=== PATIENT | female | born 1965 | race Two or more races ===

== ENCOUNTER → 2017-03-08 | Emergency (ER) | payer MEDICAID ==
[~2017-03-08] VITALS: Ht 157.5 cm; Wt 88.0 kg
[~2017-03-08] MED LIST: ADVIL200 MG PO; AFRIN NASAL SPR30 ML NASAL; GUAIFENESIN-CO118 M1 ORAL; IBUPROFEN600 MG ORAL; IBUPROFEN600 MG PO; NKM; OCUFLOX5 ML OP; SALINE NASAL SP45 ML NASAL; TYLENOL EXTRA500 MG ORAL; VICODIN 5-5001 EACH PO; ZITHROMAX250 MG ORAL
--- NOTE | 2017-03-08 17:26 | Emergency Room Report ---
History of Present Illness General Chief Complaint: Pain Source: Patient Present Illness HPI 51 YO Female presents to the ED C/O sticky discharge in the left eye since yesterday. pt. reports progressive GARCIA on the left side of the head that radiates down the left side of her neck. pt. denies N/V/F/C. Pt. has left sided facial paralysis since 1993, and pt. states when she sleeps her eye does not close all the way. pt. denies worsening of her symptoms, weakness, or numbness/ tingling. Pt. reports left ear pain as well. denies recent illness, trauma to the eye, or contact lens use .pt. states difficulty opening her eye in the am due to excessive mucus in the left eye. denies painful eye movements, denies eye pain, or loss of vision. Denies: Pain, Discharge, Redness, Loss of vision, Floaters, Flashing lights, Diplopia/blurry vision, Increased tearing. Denies imbalance, head trauma, CP, Palpitations, LOC, AMS, dizziness, Changes in Vision , Sensation, paresthesias, or a sudden severe headache. Allergies: Coded Allergies: No Known Allergies (Unverified , 09/17/13) Patient History Past Medical History: see triage record Past Surgical History: none Reviewed Nursing Documentation: PMH: Agreed, PSxH: Agreed Review of Systems All Other Systems: negative except mentioned in HPI Physical Exam Vital Signs Date Time Temp Pulse Resp B/P Pulse Ox O2 Delivery O2 Flow Rate FiO2 03/08/17 17:07 98.1 66 16 141/85 95 Room Air Sp02 EP Interpretation: reviewed, normal General Appearance: no apparent distress, alert, GCS 15, non-toxic Head: normocephalic, atraumatic Eyes: left eye other - yellow discharge noted in the left eye, no lid swelling , lid droop, no evidence of infestation. , bilateral eye EOMI, bilateral eye PERRL, bilateral eye normal inspection ENT: hearing grossly normal, normal pharynx, no angioedema, normal voice Neck: full range of motion, supple/symm/no masses Respiratory: lungs clear, normal breath sounds, speaking full sentences Cardiovascular #1: regular rate, rhythm, no edema Gastrointestinal: normal bowel sounds, non tender, soft, no guarding, no rebound Rectal: deferred Genitourinary: normal inspection, no CVA tenderness Musculoskeletal: back normal, gait/station normal, normal range of motion, non- tender, no calf tenderness Neurologic: alert, oriented x3, responsive, motor strength/tone normal, sensory intact, cerebellar normal, normal gait, speech normal, no pronator, other - 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 cheatham is my supervising Physician whom patient management has been discussed with. Diagnostic Impression: Primary Impression: Conjunctivitis Qualified Codes: H10.32 - Unspecified acute conjunctivitis, left eye ER Course 51 YO Female presents to the ED C/O sticky discharge in the left eye since yesterday. pt. reports progressive GARCIA on the left side of the head that radiates down the left side of her neck. pt. denies N/V/F/C. Pt. has left sided facial paralysis since 1993, and pt. states when she sleeps her eye does not close all the way. pt. denies worsening of her symptoms, weakness, or numbness/ tingling. Pt. reports left ear pain as well. denies recent illness, trauma to the eye, or contact lens use .pt. states difficulty opening her eye in the am due to excessive mucus in the left eye. denies painful eye movements, denies eye pain, or loss of vision. Denies: Pain, Discharge, Redness, Loss of vision, Floaters, Flashing lights, Diplopia/blurry vision, Increased tearing. Denies imbalance, head trauma, CP, Palpitations, LOC, AMS, dizziness, Changes in Vision , Sensation, paresthesias, or a sudden severe headache.e. Ddx considered but are not limited to: corneal abrasion, acute glaucoma, globe rupture, FB, Corneal Ulcer, conjunctivitis. Iridis, orbital cellulitis,keratitis , sinusitis Vital signs: are WNL, pt. is afebrile H&PE are most consistent with: bacterial conjunctivitis. ORDERS: none at this time. ED INTERVENTIONS: -Tylenol PO -d/w pt. to follow up with here PCP and also neurologist if she continues to have GARCIA's and as she states she was never told what caused her paralysis. DISCHARGE: At this time pt. is stable for d/c to home. Will provide printed patient care instructions, and any necessary prescriptions. Care plan and follow up instructions have been discussed with the patient prior to discharge. Last Vital Signs Date Time Temp Pulse Resp B/P Pulse Ox O2 Delivery O2 Flow Rate FiO2 03/08/17 17:07 98.1 66 16 141/85 95 Room Air Disposition: HOME, SELF-CARE Condition: Stable Scripts Acetaminophen* (TYLENOL EXTRA STRENGTH*) 500 Mg Tablet 500 MG ORAL Q6H Y for For Pain, #20 TAB 0 Refills Prov: Halima Rivas 03/08/17 Ofloxacin (OCUFLOX) 5 Ml Drops 2 DROP OP BID for 7 Days, #5 ML Prov: Halima Rivas 03/08/17 Patient Instructions: Bacterial Conjunctivitis, [id number] Additional Instructions: Take medications as directed. Follow up with a Primary Care Provider in 3-5 days, even if your symptoms have resolved. -- RECOMMEND NEUROLOGICAL CONSULT FOR YOUR RESIDUAL PARALYSIS. --Please review list of primary care clinics, if you do not already have a primary care provider Return sooner to ED if new symptoms occur, or current symptoms become worse. - Please note that this Emergency Department Report was dictated using [employer] dr[employer] technology software, occasionally this can lead to erroneous entry secondary to interpretation by the dictation equipment. Halima Rivas Mar 08, 2017 17:26
[2017-03-08 18:09] VITALS: BP 141/85
[2017-03-08 18:10] VITALS: BP 141/85
== END | disposition home or self-care (01) ==
LOC: EMR 17:40
DX: H10.32 Unspecified acute conjunctivitis, left eye (principal); R51 Headache; G81.94 Hemiplegia, unspecified affecting left nondominant side
CPT/HCPCS: 99284